=== PATIENT | female | born 1995 | race African-American/Black ===

== ENCOUNTER 2017-11-25 22:04 | Inpatient (IN) ==
[2017-11-25] MEDS ORDERED: ONDANSETRON 4 MG/2 ML VIAL IV PRN (23:04)
[2017-11-25] MEDS ORDERED: ONDANSETRON 4 MG/2 ML VIAL IV ONE (23:12)
[2017-11-25] MEDS ORDERED: ePHEDrine 50 MG/ML AMP IV PRN (23:12)
[2017-11-25] MEDS ORDERED: CITRIC ACID/SODIUM CITRATE 30 ML UDCUP PO ONE (23:13)
[2017-11-25] MEDS ORDERED: FAMOTIDINE 20 MG/2 ML VIAL IV ONE (23:13)
[2017-11-25] MEDS ORDERED: fentaNYL 2 MCG/ROPIV 0.2% EPID 150 ML EPIDURAL SCH (23:30)
[2017-11-25] MEDS ORDERED: AMPICILLIN INJ 2,000 MG in SODIUM CHLORIDE 0.9% 100 ML IV ONE (23:32)
[2017-11-25 23:36] LABS: Apearance,Urine CLEAR (Clear); Bacteria,Urine Occasional /HPF (Few); Bilirubin,Urine Negative (Negative); Blood, Urine Negative (Negative); Glucose,Urine (UA) Negative (Negative); Ketones,Urine Negative (Negative); Nitrite,Urine Negative (Negative); Protein,Urine Negative; RBC,Urine <1 /HPF (0-4); Squamous Epithelial Cell,Urine Occasional /HPF (0-10); Urine Color Straw (Yellow); Urine Specific Gravity 1.002 (1.001-1.035); Urine Urobilinogen < 2.0 EU/DL (0.2-1.0); WBC,Urine 2 /HPF (0-6)
[2017-11-25 23:41] LABS: Basophils % 0.3 % (0.0-0.8); Eosinophils # 0.1 10*3/uL (0.0-0.87); Hematocrit 28.9 VOL% (35.7-47.0); Hemoglobin 9.3 GM/DL (12.0-16.0); Immature Granulocytes % 0.3 %; Immature Granulocytes Absolute 0.02 #; Lymphocytes # 2.9 10*3/uL (1.4-4.0); Lymphocytes % 43.3 % (21.3-54.2); Mean Corpuscular HGB Conc 32.2 GM/DL (32-36); Mean Corpuscular Hemoglobin 29 PG (27-34); Mean Corpuscular Volume 90.3 FL (87-102); Mean Platelet Volume 11.9 FL (9.6-12.0); Monocytes # 0.9 10*3/uL (0.11-0.8); Neutrophils # 2.8 10*3/uL (1.4-7.4); Neutrophils % 41.1 % (38.7-73.9); Platelet Count 175 T/CUMM (130-400); Red Cell Distribution Width 14.2 % (9.3-17.3); White Blood Count 6.7 T/CUMM (4-12)
[2017-11-25] MEDS: LACTATED RINGERS 1,000 ML IV SCH (23:53)
[2017-11-26] LABS: Alanine Aminotransferase 12 U/L (13-56); Albumin 2.7 G/DL (3.4-5.0); Alkaline Phosphatase 180 U/L (45-117); Aspartate Amino Transferase 17 U/L (0-37); Bilirubin,Total < 0.39 MG/DL (0.2-1.0); Blood Urea Nitrogen 6 MG/DL (7-18); Calcium 8.2 MG/DL (8.5-10.1); Glucose 74 MG/DL (74-106); Osmolality,Calculated 273.5 MOS/KG (273-304); Potassium 3.6 MMOL/L (3.5-5.1); Sodium 139 MMOL/L (136-145); Total Protein 6.3 G/DL (6.4-8.3)
[2017-11-26] MEDS: AMPICILLIN INJ 1,000 MG in SODIUM CHLORIDE 0.9% 100 ML IV SCH ×2 (04:33→08:34)
[2017-11-26] MEDS: OXYTOCIN/LR 20 UNIT/1,000 ML BAG IV SCH ×2 (06:46→12:41)
[2017-11-26] MEDS ORDERED: diphenhydrAMINE 50 MG/1 ML VIAL IV ONE (07:43)
[2017-11-26] MEDS: LACTATED RINGERS 1,000 ML IV SCH (08:24)
[2017-11-26] MEDS ORDERED: fentaNYL 100 MCG/2 ML VIAL ONE (09:18)
[2017-11-26] MEDS ORDERED: IBUPROFEN 800 MG TABLET PO PRN ×2 (12:07→16:29)
[2017-11-26] MEDS ORDERED: ACETAMINOPHEN/CODEINE 300-30 MG TABLET PO PRN (13:14)
[2017-11-26] MEDS ORDERED: ACETAMINOPHEN 325 MG TABLET PO PRN (16:29)
[2017-11-26] MEDS ORDERED: MAGNESIUM HYDROXIDE SUSP 30 ML UDCUP PO PRN (16:29)
[2017-11-26] MEDS ORDERED: BISACODYL 10 MG SUPP RECTAL PRN (16:29)
[2017-11-26] MEDS ORDERED: LACTATED RINGERS 1,000 ML IV SCH (16:30)
[2017-11-26] MEDS: DOCUSATE SODIUM 100 MG CAPSULE PO SCH (20:34)
[2017-11-27 06:21] LABS: Basophils % 0.3 % (0.0-0.8); Eosinophils # 0.1 10*3/uL (0.0-0.87); Eosinophils % 1.3 % (0.00-10.9); Hematocrit 26.4 VOL% (35.7-47.0); Hemoglobin 8.9 GM/DL (12.0-16.0); Immature Granulocytes % 0.3 %; Immature Granulocytes Absolute 0.02 #; Lymphocytes # 2.8 10*3/uL (1.4-4.0); Lymphocytes % 38.7 % (21.3-54.2); Mean Corpuscular HGB Conc 33.7 GM/DL (32-36); Mean Corpuscular Hemoglobin 29 PG (27-34); Mean Corpuscular Volume 86.3 FL (87-102); Mean Platelet Volume 11.7 FL (9.6-12.0); Monocytes # 0.8 10*3/uL (0.11-0.8); Neutrophils # 3.5 10*3/uL (1.4-7.4); Neutrophils % 48.4 % (38.7-73.9); Platelet Count 161 T/CUMM (130-400); Red Blood Count 3.06 MC/CUMM (3.8-5.5); Red Cell Distribution Width 14.1 % (9.3-17.3); White Blood Count 7.2 T/CUMM (4-12)
[2017-11-27] MEDS: MULTIVITAMIN (PRENATAL) TABLET PO SCH (08:27)
[2017-11-27] MEDS: DOCUSATE SODIUM 100 MG CAPSULE PO SCH ×2 (08:27→21:03)
[2017-11-27] MEDS: FERROUS SULFATE 325 MG TABLET PO SCH ×2 (10:07→21:03)
[2017-11-28 07:33] VITALS: BP 113/66
[2017-11-28] MEDS: FERROUS SULFATE 325 MG TABLET PO SCH (08:31)
[2017-11-28] MEDS: MULTIVITAMIN (PRENATAL) TABLET PO SCH (08:31)
[2017-11-28] MEDS: DOCUSATE SODIUM 100 MG CAPSULE PO SCH (08:31)
[2017-11-28] MEDS ORDERED: DIPH/TET/ACEL PERT BOOSTER VACCINE 0.5 ML VIAL IM ONE ×2 (10:28→10:31)
== END 2017-11-28 11:50 | disposition home or self-care (01) | DRG 560 ==
LOC: N.LDOUT 22:04 → N.LD 22:06 → N.OB 11-26 12:55
PROVIDERS: ADMIT Obstetrics & Gynecology; ATTEND Obstetrics & Gynecology